=== PATIENT | male | born 1965 | race African-American/Black ===

== ENCOUNTER 2016-10-05 18:46 | Emergency (ER) | payer MEDICAID, SELFPAY ==
[~2016-10-05] VITALS: Ht 193 cm; Wt 97.5 kg
[2016-10-05 19:25] VITALS: BP 138/86
[2016-10-05 19:36] LABS: BASOPHILS % (AUTO) 1.5 % (0.0-2.0); EOSINOPHILS % (AUTO) 0.1 % (0.0-3.0); LYMPHOCYTES % (AUTO) 10.1 % (20.0-45.0); MEAN CORPUSCULAR HEMOGLOBIN 32.8 PG (27.0-31.0); MEAN CORPUSCULAR VOLUME 99 FL (80-99); MEAN PLATELET VOLUME 6.5 FL (6.5-10.1); NEUTROPHILS % (AUTO) 84.4 % (45.0-75.0); PLATELET COUNT 285 K/UL (150-450); RED BLOOD COUNT 4.31 M/UL (4.70-6.10); RED CELL DISTRIBUTION WIDTH 11.5 % (11.6-14.8); WHITE BLOOD COUNT 5.4 K/UL (4.8-10.8)
--- NOTE | 2016-10-05 19:44 | Emergency Room Report ---
History of Present Illness General Chief Complaint: Generalized Weakness Source: Patient Present Illness HPI Patient weak and altered starting 11 or 12 today. His sig other brought him in because he is unable to move. He been drinking [place], beer and also eating THC gummy bears. Patient denies any headache or pain in his body at this time. He feels generalized weakness. He is not a diabetic and also not treated for high blood pressure. His limbs feel heavy. No focal weakness or numbness. No seizure or incontinence. This has never happened before. No chest pain, fevers, NVD, trauma, rashes, neck pain, change in vision. Allergies: Coded Allergies: No Known Allergies (Unverified , 10/05/16) Patient History Past Medical History: see triage record Social History: Reports: alcohol use, drug use, Denies: smoking Social History Narrative with sister and mother here Reviewed Nursing Documentation: PMH: Agreed, PSxH: Agreed Review of Systems All Other Systems: negative except mentioned in HPI Physical Exam Vital Signs Date Time Temp Pulse Resp B/P Pulse Ox O2 Delivery O2 Flow Rate FiO2 10/05/16 18:56 97.7 98 15 138/86 97 Room Air Sp02 EP Interpretation: reviewed, normal General Appearance: well appearing, no apparent distress, GCS 15, other - lethargic but follows commands with weakness Head: normocephalic, atraumatic Eyes: bilateral eye PERRL, bilateral eye Scleral Injection ENT: moist mucus membranes Neck: supple, no meningismus, no bony tend Respiratory: chest non-tender, lungs clear, normal breath sounds Cardiovascular #1: regular rate, rhythm Cardiovascular #2: 2+ radial (R) Gastrointestinal: normal inspection, normal bowel sounds, non tender, no mass, non-distended Musculoskeletal: back normal, digits/nails normal, normal range of motion Neurologic: alert, oriented x3, salon manager III-XII nml as tested, DTRs symmetric, sensory intact, motor weakness - diffuse Psychiatric: other - lethargic Skin: normal inspection, warm/dry Medical Decision Making Diagnostic Impression: Primary Impression: Polysubstance abuse Additional Impression: Episode of generalized weakness ER Course Patient presents with generalized weakness after alcohol and THC. DDx; CVA, acute intoxication, electrolyte imbalance, hypoglycemia, AMI amongst others. Emergent evaluation with labs, CT, CXR, EKG. IV hydration and cardiac monitoring. No focality, TPA not indicated. Labs with elevated BA and + tox. Patient ambulatory after period of observation. Non-focal neuro. Patient stable for outpatient observation and treatment. D/C with sig other and Mom. Laboratory Tests Test 10/05/16 19:23 10/05/16 20:30 White Blood Count 5.4 K/UL (4.8-10.8) Red Blood Count 4.31 M/UL (4.70-6.10) L Hemoglobin 14.1 G/DL (14.2-18.0) L Hematocrit 42.9 % (42.0-52.0) Mean Corpuscular Volume 99 FL (80-99) Mean Corpuscular Hemoglobin 32.8 PG (27.0-31.0) H Mean Corpuscular Hemoglobin Concent 33.0 G/DL (32.0-36.0) Red Cell Distribution Width 11.5 % (11.6-14.8) L Platelet Count 285 K/UL (150-450) Mean Platelet Volume 6.5 FL (6.5-10.1) Neutrophils (%) (Auto) 84.4 % (45.0-75.0) H Lymphocytes (%) (Auto) 10.1 % (20.0-45.0) L Monocytes (%) (Auto) 4.0 % (1.0-10.0) Eosinophils (%) (Auto) 0.1 % (0.0-3.0) Basophils (%) (Auto) 1.5 % (0.0-2.0) Sodium Level 138 mEQ/L (135-145) Potassium Level 4.4 mEQ/L (3.4-4.9) Chloride Level 97 mEQ/L (98-107) L Carbon Dioxide Level 24 mEQ/L (20-30) Anion Gap 17 (5-15) H Blood Urea Nitrogen 10 mg/dL (7-23) Creatinine 1.1 mg/dL (0.7-1.2) Estimate Glomerular Filtration Rate > 60 mL/min (>60) Glucose Level 112 mg/dL (74-106) H Calcium Level 9.1 mg/dL (8.6-10.2) Total Bilirubin 0.2 mg/dL (0.0-1.2) Aspartate Amino Transferase (AST) 19 U/L (5-40) Alanine Aminotransferase (ALT) 14 U/L (3-41) Alkaline Phosphatase 69 U/L (40-129) Total Creatine Kinase 166 U/L (38-174) Troponin I < 0.30 ng/mL (<=0.30) Total Protein 7.5 g/dL (6.6-8.7) Albumin 4.3 g/dL (3.5-5.2) Globulin 3.2 g/dL Albumin/Globulin Ratio 1.3 (1.0-2.7) Salicylates Level < 1 mg/dL (10-30) L Acetaminophen Level < 10 ug/mL (10-30) L Serum Alcohol 226 mg/dL Urine Color Yellow Urine Appearance Clear Urine pH 5 (4.5-8.0) Urine Specific [place] 1.015 (1.005-1.035) Urine Protein Negative (NEGATIVE) Urine Glucose (UA) Negative (NEGATIVE) Urine Ketones Negative (NEGATIVE) Urine Occult Blood Negative (NEGATIVE) Urine Nitrite Negative (NEGATIVE) Urine Bilirubin Negative (NEGATIVE) Urine Urobilinogen Normal MG/DL (0.0-1.0) Urine Leukocyte Esterase Negative (NEGATIVE) Urine Opiates Screen Negative (NEGATIVE) Urine Barbiturates Screen Negative (NEGATIVE) Phencyclidine (PCP) Screen Negative (NEGATIVE) Urine Amphetamines Screen Negative (NEGATIVE) Urine Benzodiazepines Screen Negative (NEGATIVE) Urine Cocaine Screen Negative (NEGATIVE) Urine Marijuana (THC) Screen Positive (NEGATIVE) H EKG Diagnostic Results Rate: normal Rhythm: NSR ST Segments: other - ST changes c/w LVH Rhythm Strip Diag. Results EP Interpretation: yes Rhythm: NSR, no PVC's, no ectopy Chest X-Ray Diagnostic Results EP Interpretation: Yes Findings: no consolidation, no effusion, no pneumothorax, no acute cardiopulmonary disease Number of Views: 1 CT/MRI/US Diagnostic Results CT/MRI/US Diagnostic Results : Imaging Test Ordered: head Impression atrophy, nl bones and ST Last Vital Signs Date Time Temp Pulse Resp B/P Pulse Ox O2 Delivery O2 Flow Rate FiO2 10/05/16 22:22 97.7 89 19 125/68 98 Room Air Status: improved Disposition: HOME, SELF-CARE Condition: Improved Reji Erwin M.D. Oct 05, 2016 19:44
[2016-10-05 20:00] LABS: TROPONIN I < 0.30 ng/mL (<=0.30)
[2016-10-05 20:03] LABS: ACETAMINOPHEN < 10 ug/mL (10-30); ALANINE AMINOTRANSFERASE 14 U/L (3-41); ALBUMIN/GLOBULIN RATIO 1.3 (1.0-2.7); ALCOHOL 226 mg/dL; ANION GAP 17 (5-15); ASPARTATE AMINO TRANSFERASE 19 U/L (5-40); CALCIUM 9.1 mg/dL (8.6-10.2); CARBON DIOXIDE 24 mEQ/L (20-30); CHLORIDE 97 mEQ/L (98-107); CREATININE 1.1 mg/dL (0.7-1.2); GLOMERULAR FILTRATION RATE > 60 mL/min (>60); HEMOLYSIS 6; POTASSIUM 4.4 mEQ/L (3.4-4.9); SODIUM 138 mEQ/L (135-145); TOTAL PROTEIN 7.5 g/dL (6.6-8.7)
[2016-10-05 21:20] LABS: APPEARANCE,URINE CLEAR; KETONES,URINE NEGATIVE (NEGATIVE); LEUKOCYTE ESTERASE ,URINE NEGATIVE (NEGATIVE); NITRITE,URINE NEGATIVE (NEGATIVE); PH,URINE 5 (4.5-8.0); PROTEIN,URINE NEGATIVE (NEGATIVE); UROBILINOGEN,URINE NORMAL MG/DL (0.0-1.0)
[2016-10-05 22:21] VITALS: BP 125/68
[2016-10-05 22:22] VITALS: BP 125/68
--- NOTE | 2016-10-06 09:27 | Diagnostic Imaging Report ---
Indications: Altered level of consciousness Technique: Spiral acquisitions obtained through the brain. Angled axial and coronal 5 x 5 mm slices were reconstructed. Total dose length product 1411 mGycm. CTDI vol(s) 70 mGy Comparison: None Findings: No or edema. No mass effect or midline shift. There is mild enlargement of ventricles and extra-axial CSF spaces, consistent with volume loss, somewhat out of proportion to age. Normal nichols-white differentiation. Visualized orbits and sinuses are unremarkable. Intact calvarium. Impression: Through one loss, out of proportion to age Negative for acute intracranial bleed or mass effect This agrees with the preliminary interpretation provided overnight by Dr. Ratliff The CT scanner at [facility] is accredited by the [employer] and the scans are performed using protocols designed to limit radiation exposure to as low as reasonably achievable to attain images of sufficient resolution adequate for diagnostic evaluation.
--- NOTE | 2016-10-06 11:45 | Diagnostic Imaging Report ---
Indication: Cough Technique: One view of the chest Comparison: none Findings: Lungs and pleural spaces are clear. Heart size is upper limits of normal Impression: Negative This agrees with the preliminary interpretation provided by the emergency room physician
--- NOTE | 2016-10-06 12:15 | Cardiology Report ---
APPROVED REPORT EKG Measurement Heart [id number] Normal sinus rhythm Minimal voltage criteria for LVH, may be normal variant Borderline ECG
== END 2016-10-05 22:22 | disposition home or self-care (01) ==
LOC: EMR 19:15
DX: F12.10 Cannabis abuse, uncomplicated (principal); F10.10 Alcohol abuse, uncomplicated; R53.1 Weakness
CPT/HCPCS: 36415; 70450; 71010; 80053; 80300; 80329; 81003; 82550; 84484; 85025; 93005; 96374; 96375